=== PATIENT | female | born 1980 | race Caucasian/White ===

== ENCOUNTER 2017-02-08 07:01 | Day surgery (SDC) | payer OTHER, BC ==
[~2017-02-08 07:01] MED LIST: Dexamethasone 4 MG/ML SDV ONE; Lactated Ringers 1,000 ML IV SCH; Lidocaine 1% 4 ML ONE; Lidocaine 1%/Sod Bicarbonate in NS 8.4% 1 ML Syringe PRN; Midazolam 1 MG/ML 2 ML SDV ONE; Ondansetron 4 MG/2 ML SDV ONE; Propofol 200 MG/20 ML SDV ONE; Rocuronium 50 MG/5 ML Vial ONE; Sodium Chloride 0.9% 10 ML Syringe FLUSH PRN; ceFAZolin 1 GM Vial ONE; fentaNYL 250 MCG/5 ML SDV ONE
[2017-02-08] MEDS ORDERED: Lidocaine 1% with EPINEPHrine 1:100,000 20 ML MDV ONE (07:21)
[2017-02-08] MEDS ORDERED: Sodium Chloride 0.9% 50 ML SDV ONE (07:22)
--- NOTE | 2017-02-08 07:25 | PCM.PREANE ---
Preanesthetic Assessment - Anesthesia/Transfusion/Family Hx Anesthesia History: Prior Anesthesia Without Reaction Type of Anesthesia Reaction: Excessive Nausea/Vomiting Family History of Anesthesia Reaction: No Transfusion History: No Prior Transfusion(s) Type of Transfusion Reactions: Reports: Unknown Intubation History: Unknown - Review of Systems General: No Symptoms Pulmonary: No Symptoms Cardiovascular: No Symptoms Gastrointestinal: No symptoms Neurological: No Symptoms Other: Reports: Anxiety - Physical Assessment NPO Status Date: 02/07/17 NPO Status Time: 22:30 Pulse: 92 O2 Sat by Pulse Oximetry: 100 Respiratory Rate: 16 Blood Pressure: 116/77 Temperature: 36.7 C Weight: 53.977 kg ASA Class: 2 Mental Status: Alert & Oriented x3 Airway Class: Mallampati = 1 Dentition: Reports: Normal Dentition Thyro-Mental Finger Breadths: 3 Mouth Opening Finger Breadths: 3 ROM/Head Extension: Full Lungs: Clear to auscultation, Normal respiratory effort Cardiovascular: Regular Rate, Regular Rhythm - Lab Values: Laboratory Last Values WBC 12.67 K/mm3 (3.98-10.04) H 02/07/17 12:45 RBC 4.53 M/mm3 (3.98-5.22) 02/07/17 12:45 Hgb 15.4 gm/L (11.2-15.7) 02/07/17 12:45 Hct 43.7 % (34.1-44.9) 02/07/17 12:45 MCV 96.5 fl (79.4-94.8) H 02/07/17 12:45 MCH 34.0 pg (25.6-32.2) H 02/07/17 12:45 MCHC 35.2 g/dl (32.2-35.5) 02/07/17 12:45 RDW Std Deviation 40.7 fL (36.4-46.3) 02/07/17 12:45 Plt Count 226 K/mm3 (182-369) 02/07/17 12:45 MPV 10.7 fl (9.4-12.3) 02/07/17 12:45 Neut % (Auto) 66.8 % (34.0-71.1) 02/07/17 12:45 Lymph % (Auto) 25.4 % (19.3-51.7) 02/07/17 12:45 [place] % (Auto) 6.6 % (4.7-12.5) 02/07/17 12:45 Eos % (Auto) 0.5 (0.7-5.8) L 02/07/17 12:45 Baso % (Auto) 0.4 % (0.1-1.2) 02/07/17 12:45 Neut # (Auto) 8.46 K/mm3 (1.56-6.13) H 02/07/17 12:45 Lymph # (Auto) 3.22 K/mm3 (1.18-3.74) 02/07/17 12:45 [place] # (Auto) 0.84 K/mm3 (0.24-0.36) H 02/07/17 12:45 Eos # (Auto) 0.06 K/mm3 (0.04-0.36) 02/07/17 12:45 Baso # (Auto) 0.05 K/mm3 (0.01-0.08) 02/07/17 12:45 HCG, Quant < 1.0 mIU/mL 02/07/17 12:45 Blood Type A NEGATIVE 02/07/17 12:45 Gel Antibody Screen Negative 02/07/17 12:45 - Allergies Allergies/Adverse Reactions: Allergies Allergy/AdvReac Type Severity Reaction Status Date / Time No Known Allergies Allergy Verified 02/07/17 15:32 - Blood Blood Available: No Product(s) Available: None - Anesthesia Plan Pre-Op Medication Ordered: None - Acknowledgements Anesthesia Type Planned: General Anesthesia Pt an Appropriate Candidate for the Planned Anesthesia: Yes Alternatives and Risks of Anesthesia Discussed w Pt/Guardian: Yes Pt/Guardian Understands and Agrees with Anesthesia Plan: Yes PreAnesthesia Questionnaire HEENT History: Reports: None Cardiovascular History: Reports: None Respiratory History: Reports: None Gastrointestinal History: Reports: None Genitourinary History: Reports: Other (see below) Other Genitourinary History: dysmenorrhea, menorrhaiga COST SPECIALIST History: Reports: None Musculoskeletal History: Reports: None Psychiatric History: Reports: Anxiety, Other (see below) Other Psychiatric History: chronic fatigue Endocrine/Metabolic History: Reports: None Hematologic History: Reports: None Immunologic History: Reports: None Oncologic (Cancer) History: Reports: None Dermatologic History: Reports: None - Past Surgical History Head Surgeries/Procedures: Reports: None Female Surgical History: Reports: Endometrial ablation, Tubal ligation - SUBSTANCE USE Smoking Status *Q: Current Every Day Smoker (0.5ppd for 16 years) Tobacco Use Within Last Twelve Months: Cigarettes Second Hand Smoke Exposure: No Recreational Drug Use History: No - HOME MEDS Home Medications: Home Meds . [No Known Home Meds] 02/07/17 [History] - CURRENT (IN HOUSE) MEDS Current Meds: Current Medications Lactated Ringer's (Ringers, Lactated) 1,000 mls @ 125 mls/hr IV ASDIRECTED DAYNA Stop: 02/08/17 23:00 Lidocaine/Sodium Bicarbonate (Buffered Lidocaine 1% In Ns 8.4%) 0.25 ml .XX ONETIME PRN PRN Reason: Prior to IV Start Stop: 02/08/17 18:00 Sodium Chloride (Saline Flush) 10 ml FLUSH ASDIRECTED PRN PRN Reason: Keep Vein Open Stop: 02/08/17 18:00 Discontinued Medications Cefazolin Sodium (Ancef) Confirm Administered Dose 2 gm .ROUTE .STK-MED ONE Stop: 02/08/17 06:54 Dexamethasone (Dexamethasone) Confirm Administered Dose 4 mg .ROUTE .STK-MED ONE Stop: 02/08/17 06:37 Fentanyl (Sublimaze) Confirm Administered Dose 250 mcg .ROUTE .STK-MED ONE Stop: 02/08/17 06:34 Lidocaine HCl (Xylocaine-Mpf 1%) Confirm Administered Dose 4 mls @ as directed .ROUTE .STK-MED ONE Stop: 02/08/17 06:33 Midazolam HCl (Versed 1 Mg/Ml) Confirm Administered Dose 2 mg .ROUTE .STK-MED ONE Stop: 02/08/17 06:34 Ondansetron HCl (Zofran) Confirm Administered Dose 4 mg .ROUTE .STK-MED ONE Stop: 02/08/17 06:33 Propofol (Diprivan 20 Ml) Confirm Administered Dose 200 mg .ROUTE .STK-MED ONE Stop: 02/08/17 06:34 Rocuronium [place] (Zemuron) Confirm Administered Dose 50 mg .ROUTE .STK-MED ONE Stop: 02/08/17 06:33
[2017-02-08] MEDS ORDERED: Scopolamine 1.5 MG Transdermal Patch TRDERM PRN (07:41)
[2017-02-08] MEDS ORDERED: diphenhydrAMINE 50 MG/ML SDV ONE (08:04)
[2017-02-08] MEDS ORDERED: Dexamethasone 4 MG/ML SDV ONE (08:12)
[2017-02-08] MEDS ORDERED: fentaNYL 100 MCG/2 ML SDV IVPUSH PRN (08:14)
[2017-02-08] MEDS ORDERED: Ondansetron 4 MG/2 ML SDV IVPUSH PRN (08:14)
[2017-02-08] MEDS ORDERED: Metoclopramide 10 MG/2 ML SDV ONE (08:22)
[2017-02-08] MEDS ORDERED: Lactated Ringers 1,000 ML ONE (08:26)
[2017-02-08] MEDS ORDERED: Neostigmine Methylsulfate 1 MG/ML 5 ML Syringe ONE (08:45)
[2017-02-08] MEDS ORDERED: Ketorolac 30 MG/ML SDV ONE (08:46)
--- NOTE | 2017-02-08 08:57 | PCM.POSTAN ---
POST ANESTHESIA ASSESSMENT - MENTAL STATUS Mental Status: alert, oriented - VITAL SIGNS Pulse Rate: 103 SaO2: 99 Resp Rate: 14 Blood Pressure: 130/80 Temperature: 97.8 F - RESPIRATORY Respiratory Status: respiratory rate WNL, airway patent, O2 saturation stable, supplemental oxygen - CARDIOVASCULAR CV Status: pulse rate WNL, blood pressure stable - GASTROINTESTINAL GI Status: no symptoms - PAIN Pain Score: 5 - POST OP HYDRATION Hydration Status: adequate & stable
--- NOTE | 2017-02-08 09:09 | PCM.OPNOTE ---
- General Post-Op/Procedure Note Date of Surgery/Procedure: 02/08/17 Operative Procedure(s): Total vaginal hysterectomy, bilateral salpingectomy ( ovaries not removed) [id number] Pre Op Diagnosis: Menorrhagia with regular cycle, dysmenorrhea, status post ablation of the endometrium Post-Op Diagnosis: Same Anesthesia Technique: General ET tube Primary Surgeon: Lloyd Concepcion Secondary Surgeon: Vish Clancy Anesthesia Provider: Arlyn Esparza Fluid Replacement, Intraop: 1,000 Output, Urine Amount: 0 EBL in mLs: 30 Drain/Tube Comments:: None Complications: None Condition: Good Free Text/Narrative:: Patient was transported to operating room #1, placed under general anesthesia with endotracheal intubation in the low dorsal lithotomy position. Examination under anesthesia revealed no adnexal masses. Normal size Uterus. SCDs in place and functioning. Prior surgery. Ancef 2 g given intravenously, prior surgery. Timeout performed confirming name, date of , and procedures total vaginal hysterectomy, bilateral salpingectomy, possible removal of one or both ovaries, possible total, hysterectomy, bilateral salpingectomy, and removal of both ovaries.). (Total vaginal hysterectomy, bilateral salpingectomy performed.), And (neither ovary removed.) , Injecting 0.25% lidocaine with epinephrine in multiple confluent areas 15 mL. Total and massaging. This into the surrounding tissues with open 4 x 4. A circumscribing incision was made and posterior colpotomy performed without difficulty. Long, weighted speculum placed, and crossclamping, uterosacral and cardinal ligaments activating LigaSure, and incising, proceeding in a pedicle fashion cephalad. Crossclamping, activating, and, incising, until the triple pedicles were approximated. The uterus, fundus, brought through the posterior portion of the surgery and cross clamping with Rajeev clamps. The uterus, and cervix removed in block. The left and right ovaries appeared normal. There were portions of fallopian tube remaining on the left and right side, beginning on the right side. The fallopian tube grasped, and crossclamping, with LigaSure , removing the right fallopian tube, followed by left fallopian tube removal. The triple pedicle suture ligated with 0 Monocryl on the right side. And #1 Vicryl on the left side . Reinspection of the ovaries, and pedicles showed no bleeding. Purstring suture was utilized of 0 Monocryl to close. Incorporate. The pedicles extraperitoneally. Sponge, needle, pack, and split, sharp count, having been correct, x2. Prior to placement of Purstring suture. The anterior , posterior vaginal cuff, approximate with #0 Monocryl running, locking suture. Patient tolerated siege well, transported post anesthesia care unit in satisfactory condition. Total surgery time 30 minutes. Estimated blood loss [address] IV fluids 1000 mL. Patient given Toradol 30 mg IV at 0840 hours. Utilizing, Instamed, Percocet 5/325, dispense 30 Patient returned clinic in 4 weeks for followup I talked with her significant other foramen and discussed the findings at surgery and the fact that the ovaries were not removed and talked with patient post anesthesia care unit concerning same. Plan is for patient to go home today
[2017-02-08] MEDS ORDERED: HYDROmorphone 0.5 MG/0.5 ML Syringe IVPUSH PRN (09:20)
[2017-02-08] MEDS ORDERED: Meperidine PF 50 MG/ML Syringe IVPUSH PRN (09:20)
--- NOTE | 2017-02-08 09:47 | PCM48HPAN ---
Post Anesthesia Note - EVALUATION WITHIN 48HRS OF ANESTHETIC Vital Signs in Normal Range: Yes Patient Participated in Evaluation: Yes Respiratory Function Stable: Yes Airway Patent: Yes Cardiovascular Function Stable: Yes Hydration Status Stable: Yes Pain Control Satisfactory: Yes Nausea and Vomiting Control Satisfactory: Yes Mental Status Recovered: Yes
[2017-02-08] MEDS ORDERED: Acetaminophen/oxyCODONE 325-5 MG Tab PO ONE (10:35)
== END 2017-02-08 11:31 | disposition home or self-care (01) ==
LOC: JD.SDS 07:01
PROVIDERS: ATTEND Obstetrics & Gynecology
DX: N92.0 Excessive and frequent menstruation with regular cycle (principal); N94.6 Dysmenorrhea, unspecified; F41.9 Anxiety disorder, unspecified; F17.210 Nicotine dependence, cigarettes, uncomplicated; Z98.51 Tubal ligation status; Z98.890 Other specified postprocedural states; Z79.899 Other long term (current) drug therapy
CPT/HCPCS: 36415; 58262; 84702; 85025; 86850; 86900; 86901; 88307; A9270; J0690; J1100; J1170; J1200; J1885; J2250; J2405; J2710; J2765; J3010; J7120; 00944; J2704

== ENCOUNTER 2018-10-01 01:18 | Emergency (ER) | payer OTHER ==
[2018-10-01 01:30] VITALS: BP 110/90
[2018-10-01] MEDS ORDERED: Azithromycin 250 MG Tab PO ONE (01:49)
--- NOTE | 2018-10-01 02:39 | ER ---
REASON FOR EMERGENCY ROOM VISIT: Cough. HISTORY OF PRESENT ILLNESS: This 38-year-old woman has had a fever and a cough for approximately 1 week. It started out as a dry cough and she has had some chills and fever. Her temperature has ranged between 100 and 101. Only over the past 24 hours, she began to expectorate some thick, tenacious, greenish mucus. She does not smoke, but she admits to vaping. She has not had a sore throat or headache. She denies any GI symptoms. Because she feels that she has gotten more air hunger at times when she coughs and gets mucus caught in her airway and has difficult time expectorating it, but she manages to do this. She has not been taking any medications except for airborne vitamin C chewable. PAST MEDICAL HISTORY: 1. Hysterectomy. 2. Tubal ligation. 3. 4, para 4. CURRENT MEDICATIONS: None. ALLERGIES: None. REVIEW OF SYSTEMS: Pertinent positives and negatives as listed in the HPI. PHYSICAL EXAMINATION: GENERAL: She is a pleasant, calm woman, in no acute distress. VITAL SIGNS: Temperature is 97.3 degrees Fahrenheit, pulse 106, respirations 18, blood pressure 110/90, O2 sats 100% on room air. HEENT: Head is normocephalic. No conjunctivitis is noted. TMs are normal. Oropharynx is normal with no erythema or exudates. NECK: Supple with no adenopathy. Trachea is midline. No JVD is noted. CHEST: Clear to auscultation with good air exchange bilaterally. No wheezes, rhonchi, or rales. CARDIAC: Regular rate without murmur. ABDOMEN: Soft, nontender. No organomegaly. EXTREMITIES: No cyanosis. [place] and warm. IMPRESSION: Probable early community-acquired pneumonia given the fact that she has had fever and coughing for 1 week and this seems to be worsening even though she has no significant findings on physical exam. PLAN: I think it is sensible to start her out on a Z-Isaiah. The first 500 mg was given to her in the emergency room and a prescription was given to her for the 250 mg p.o. daily each day x4. I also recommended Mucinex maximum strength plain and Delsym for help in symptomatic cough relief. I advised that she stay home from work tomorrow and that they try moist steam or hot showers to try and help loosen things up. If her symptoms worsen at any time or if she continues to persist with this cough once the Z-Isaiah is completed, she should probably be seen again and revaluated, possibly even including a chest x-ray. All the supportive measures were discussed with the patient and her . They agree and all questions were answered. BERNIE /[id number]
== END 2018-10-01 02:03 | disposition home or self-care (01) ==
LOC: JD.ED 01:18
DX: R05 Cough (principal); R50.9 Fever, unspecified
CPT/HCPCS: 99284; A9270; 99283